=== PATIENT | female | born 1970 | race Caucasian/White ===

== ENCOUNTER 2018-11-30 04:26 | Emergency (ER) | payer OTHER ==
[~2018-11-30] VITALS: Ht 157.5 cm; Wt 83.9 kg
== END 2018-11-30 10:08 | disposition home or self-care (01) ==
LOC: ER 04:26
DX: R06.02 Shortness of breath (principal); I10 Essential (primary) hypertension

== ENCOUNTER 2019-12-14 12:22 | Outpatient (CLI) | payer OTHER | END 2019-12-14 12:37 | disposition home or self-care (01) | LOC: SONOGRAMA 12:22 | DX: N60.11 Diffuse cystic mastopathy of right breast (principal); N60.12 Diffuse cystic mastopathy of left breast ==

== ENCOUNTER 2019-12-31 12:49 | Outpatient (CLI) | payer OTHER | END 2019-12-31 12:56 | disposition home or self-care (01) | LOC: SONOGRAMA 12:49 | DX: N60.11 Diffuse cystic mastopathy of right breast (principal); N60.12 Diffuse cystic mastopathy of left breast ==

== ENCOUNTER 2020-01-07 13:07 | Outpatient (CLI) | payer OTHER | END 2020-01-07 14:00 | disposition home or self-care (01) | LOC: SONOGRAMA 13:07 | DX: C50.411 Malignant neoplasm of upper-outer quadrant of right female breast (principal); N60.11 Diffuse cystic mastopathy of right breast; N60.12 Diffuse cystic mastopathy of left breast ==

== ENCOUNTER 2020-02-08 06:35 | Inpatient (IN) | payer OTHER ==
[~2020-02-08 06:35] MED LIST: COZAAR25 MG PO; FORTAMET500 MG PO; HYDRODIURIL12.5 MG PO; LEVOTHYROXINE25 MCG PO
== END 2020-02-09 14:45 | disposition home or self-care (01) | DRG 581 ==
LOC: CIR.AMB 06:35 → O/R 07:00 → CIR.AMB 07:15 → EDSTATUS 07:45 → SURH 07:45 → CIR.AMB 07:45 → O/R 02-09 14:45
PROVIDERS: Plastic Surgery; ADMIT Surgery
PROC: 0HBV0ZZ Excision of Bilateral Breast, Open Approach (ICD-10-PCS; 2020-02-08)
PROC: C71L1ZZ Planar Nuclear Medicine Imaging of Upper Chest Lymphatics using Technetium 99m (Tc-99m) (ICD-10-PCS; 2020-02-08)
PROC: 07B50ZZ Excision of Right Axillary Lymphatic, Open Approach (ICD-10-PCS; principal; 2020-02-08 07:15)
PROC: 0HBV0ZZ Excision of Bilateral Breast, Open Approach (ICD-10-PCS; 2020-02-08 07:15)
DX: C50.411 Malignant neoplasm of upper-outer quadrant of right female breast (principal); D48.1 Neoplasm of uncertain behavior of connective and other soft tissue; Z41.1 Encounter for cosmetic surgery; N62 Hypertrophy of breast; D24.2 Benign neoplasm of left breast

== ENCOUNTER 2021-05-14 08:58 | Outpatient (CLI) | payer OTHER | END 2021-05-14 09:01 | disposition home or self-care (01) | LOC: SONOGRAMA 08:58 | PROVIDERS: ATTEND Pathology Anatomic Pathology & Clinical Pathology | DX: E04.2 Nontoxic multinodular goiter (principal) ==

== ENCOUNTER 2022-06-24 10:35 | Outpatient (CLI) | payer OTHER | END 2022-06-24 10:42 | disposition home or self-care (01) | LOC: SONOGRAMA 10:35 | PROVIDERS: ATTEND Pathology Anatomic Pathology & Clinical Pathology | DX: E04.1 Nontoxic single thyroid nodule (principal) ==

== ENCOUNTER 2023-02-07 20:11 | Emergency (ER) | payer OTHER ==
[~2023-02-07] VITALS: Ht 157.5 cm; Wt 81.6 kg
[2023-02-07] MEDS ORDERED: ATORVASTATIN CA10 MG (20:45)
[2023-02-07] MEDS ORDERED: GLIMEPIRIDE2 MG (20:46)
== END 2023-02-07 22:57 | disposition home or self-care (01) ==
LOC: ER 20:11
DX: S90.111A Contusion of right great toe without damage to nail, initial encounter (principal); W18.39XA Other fall on same level, initial encounter; Y93.9 Activity, unspecified; Y92.89 Other specified places as the place of occurrence of the external cause; Y99.9 Unspecified external cause status; Z91.040 Latex allergy status

== ENCOUNTER 2023-03-03 20:02 | Emergency (ER) | payer OTHER ==
[~2023-03-03] VITALS: Ht 157.5 cm; Wt 81.6 kg
[~2023-03-03 20:02] MED LIST changes: +ATORVASTATIN CA10 MG; +GLIMEPIRIDE2 MG
== END 2023-03-03 20:49 | disposition home or self-care (01) ==
LOC: ER 20:02
DX: J10.1 Influenza due to other identified influenza virus with other respiratory manifestations (principal); R07.0 Pain in throat; E13.69 Other specified diabetes mellitus with other specified complication; Z91.040 Latex allergy status

== ENCOUNTER → 2023-08-01 | Emergency (ER) | payer OTHER ==
[~2023-08-01] VITALS: Ht 157.5 cm; Wt 79.4 kg
[~2023-08-01] MED LIST changes: +DICLOFENAC POTA50 MG PO; +ZANAFLEX2 M1 PO
== END | disposition home or self-care (01) ==
LOC: ER 03:27
DX: M77.8 Other enthesopathies, not elsewhere classified (principal); Z91.040 Latex allergy status

== ENCOUNTER 2023-12-15 13:54 | Outpatient (CLI) | payer OTHER | END 2023-12-15 14:01 | disposition home or self-care (01) | LOC: SONOGRAMA 13:54 | PROVIDERS: ATTEND Pathology Anatomic Pathology & Clinical Pathology | DX: D48.61 Neoplasm of uncertain behavior of right breast (principal); N60.11 Diffuse cystic mastopathy of right breast ==

== ENCOUNTER → 2024-01-18 | Emergency (ER) | payer OTHER ==
[~2024-01-18] VITALS: Ht 157.5 cm; Wt 76.2 kg
[~2024-01-18] MED LIST changes: +ANASTROZOLE5 GM; +DICLOFENAC SODI75 MG PO; +JARDIANCE10 MG; +KETOROLAC TROMETHAMINE 60 MG VIAL IM ONE; +NORFLEX100MG PO; +ORPHENADRINE CITRATE 30 MG/ML AMPUL IM ONE
== END | disposition home or self-care (01) ==
LOC: ER 19:35
DX: M54.50 Low back pain, unspecified (principal); M25.512 Pain in left shoulder

== ENCOUNTER 2024-02-13 22:33 | Emergency (ER) | payer OTHER ==
[~2024-02-13] VITALS: Ht 157.5 cm; Wt 76.2 kg
[~2024-02-13 22:33] MED LIST changes: -KETOROLAC TROMETHAMINE 60 MG VIAL IM ONE; -ORPHENADRINE CITRATE 30 MG/ML AMPUL IM ONE
[2024-02-13] MEDS ORDERED: ALBUTEROL SULFATE 3 ML/2.5 MG AMPUL.NEB IH STA (23:48)
[2024-02-13] MEDS ORDERED: BUDESONIDE 0.5 MG/2 ML AMPUL.NEB IH STA (23:49)
[2024-02-14 00:04] LABS: HEMATOCRIT 40.9 % (36.0-45.00); HEMOGLOBIN 13.5 g/dL (12.0-15.00); MEAN CELL VOLUME 79.4 fL (80.00-100.00); MEAN CORPUSCULAR HEMOGLOBIN 26.2 pg (27.00-32.0); PLATELET COUNT 340 K/uL (150-450); RED BLOOD COUNT 5.15 M/uL (4.00-6.00); RED CELL DISTRIBUTION WIDTH 15.1 % (11.5-14.5)
== END 2024-02-14 01:53 | disposition home or self-care (01) ==
LOC: ER 22:33
PROVIDERS: Emergency Medicine
DX: J40 Bronchitis, not specified as acute or chronic (principal); Z20.822 Contact with and (suspected) exposure to COVID-19; Z91.040 Latex allergy status; Z85.89 Personal history of malignant neoplasm of other organs and systems; E11.9 Type 2 diabetes mellitus without complications; Z79.84 Long term (current) use of oral hypoglycemic drugs; I10 Essential (primary) hypertension

== ENCOUNTER 2024-08-29 16:42 | Emergency (ER) | payer OTHER ==
[~2024-08-29] VITALS: Ht 157.5 cm; Wt 72.6 kg
[2024-08-29 16:55] VITALS: BP 120/73; O2SAT 100
[2024-08-29] MEDS ORDERED: ORPHENADRINE CITRATE 30 MG/ML AMPUL IM STA (18:31)
[2024-08-29] MEDS ORDERED: DEXAMETHASONE SODIUM PHOSPHATE 4 MG/ML VIAL IM STA (18:32)
[2024-08-29] MEDS ORDERED: NORFLEX100MG PO (18:56)
== END 2024-08-29 19:24 | disposition home or self-care (01) ==
LOC: ER 16:43
DX: M25.512 Pain in left shoulder (principal); Z91.040 Latex allergy status

== ENCOUNTER 2024-12-11 19:35 | Emergency (ER) | payer OTHER ==
[~2024-12-11] VITALS: Ht 157.5 cm; Wt 68.0 kg
[2024-12-12 01:07] LABS: HEMATOCRIT 42.5 % (36.0-45.00); HEMOGLOBIN 13.9 g/dL (12.0-15.00); MEAN CELL VOLUME 80.6 fL (80.00-100.00); MEAN CORPUSCULAR HEMOGLOBIN 26.3 pg (27.00-32.0); MEAN CORPUSCULAR HGB CONC 32.7 g/dl (32.0-36.0); PLATELET COUNT 406 K/uL (150-450); RED BLOOD COUNT 5.28 M/uL (4.00-6.00); RED CELL DISTRIBUTION WIDTH 14.6 % (11.5-14.5)
[2024-12-12] MEDS ORDERED: ORPHENADRINE CITRATE 30 MG/ML AMPUL IM STA (05:39)
[2024-12-12] MEDS ORDERED: KETOROLAC TROMETHAMINE 60 MG VIAL IM STA (05:39)
[2024-12-12] MEDS ORDERED: NORFLEX100MG PO (05:40)
[2024-12-12] MEDS ORDERED: NABUMETONE750 MG PO (05:40)
[2024-12-12] MEDS ORDERED: ORPHENADRINE CITRATE 30 MG/ML AMPUL ONE (05:42)
[2024-12-12] MEDS ORDERED: KETOROLAC TROMETHAMINE 60 MG VIAL IM ONE (05:42)
== END 2024-12-12 05:56 ==
LOC: ER 19:37
PROVIDERS: Preventive Medicine Public Health & General Preventive Medicine
DX: M79.10 Myalgia, unspecified site (principal); Z20.822 Contact with and (suspected) exposure to COVID-19; Z91.040 Latex allergy status